=== PATIENT | female | born 1945 | race Caucasian/White ===

== ENCOUNTER 2017-02-12 17:37 | Emergency (ER) | payer MEDICARE ==
[~2017-02-12] VITALS: Ht 167.6 cm; Wt 68.1 kg
[2017-02-12] MEDS ORDERED: ASPIRIN 81 MG TABLET CHEW PO ONE (18:00)
[2017-02-12] MEDS ORDERED: LORazepam 2 MG/ML, 1ML IVPush ONE (18:00)
[2017-02-12] MEDS ORDERED: SODIUM CHLORIDE FLUSH 10ML SYR IVF ONE (18:00)
[2017-02-12] MEDS ORDERED: LORazepam 2 MG/ML, 1ML ONE (18:32)
[2017-02-12 18:57] LABS: BLOOD UREA NITROGEN 15 mg/dL (7-18)
[2017-02-12 19:03] LABS: IS PT STATUS REG ER OR PRE ER? YES
[2017-02-12 19:17] VITALS: BP 161/87
== END 2017-02-12 19:29 | disposition home or self-care (01) ==
LOC: ED 18:56
DX: R05 Cough (principal); I10 Essential (primary) hypertension
CPT/HCPCS: 36415; 71010; 72110; 80048; 82040; 83880; 84484; 85025; 85610; 93005; 96374; 99285; J2060

== ENCOUNTER 2017-02-15 00:59 | Emergency (ER) | payer MEDICARE ==
[~2017-02-15] VITALS: Ht 167.6 cm; Wt 68.0 kg
[2017-02-15 02:31] LABS: BLOOD UREA NITROGEN 18 mg/dL (7-18)
[2017-02-15] MEDS ORDERED: DIPHENHYDRAMINE 12.5MG/5ML, 10ML UDC PO ONE (03:00)
[2017-02-15] MEDS ORDERED: DIPHENHYDRAMINE 12.5MG/5ML, 10ML UDC ONE (03:05)
[2017-02-15 03:15] VITALS: BP 178/102
== END 2017-02-15 03:18 | disposition home or self-care (01) ==
LOC: ED 03:12
DX: J98.01 Acute bronchospasm (principal); I10 Essential (primary) hypertension; E11.9 Type 2 diabetes mellitus without complications; R05 Cough
CPT/HCPCS: 36415; 71020; 80048; 82040; 85025; 99285; J7512